=== PATIENT | male | born 1945 | race Caucasian/White ===

== ENCOUNTER → 2017-01-18 | Outpatient (CLI) | payer MEDICARE ==
[~2017-01-18] MED LIST: FLUO20CA3 PO; LORA1TAB PO; LORT5TAB PO; OMEP20TA PO; PRAV20 PO; VITA-13 PO; VITATAB11 PO
--- NOTE | 2017-01-18 15:21 | MG ---
cc: SELENE ALANIS MD Lab No: [id number] Date: 01/18/2017 : 1945 Sex: M INDICATION A 71-year-old with a history of tremors, shaking, confusion, apparently chronic problem. DESCRIPTION Posterior rhythm demonstrates 8-10 Hz activity, 20-40 microvolts. Low amplitude beta in frontal channels with associated myogenic artifact. Reasonably good driving on photic stimulation. Single lead EKG showing sinus rhythm with some premature contractions and questionable irregularity. INTERPRETATION Normal awake EEG. Mild cardiac arrhythmia. Clinical correlation. Selene Alanis MD MG/BT /3:10 PM /3:17 PM
== END ==
LOC: HEEG 08:18
PROVIDERS: ATTEND Family Medicine
DX: R68.89 Other general symptoms and signs (principal); R25.1 Tremor, unspecified
CPT/HCPCS: 95819